=== PATIENT | male | born 1995 | race Caucasian/White ===

== ENCOUNTER 2023-01-07 11:58 | Outpatient (CLI) | payer BC, SELFPAY | END 2023-01-07 11:59 | disposition home or self-care (01) | PROVIDERS: PCP Nurse Practitioner Adult Health; Visit Provider Nurse Practitioner Adult Health | DX: J30.9 Allergic rhinitis, unspecified (principal); Z91.018 Allergy to other foods | CPT/HCPCS: 36415; 82785; 86003 ==